=== PATIENT | male | born 1995 | race African-American/Black ===

== ENCOUNTER 2021-01-13 10:57 | Inpatient (IN) | payer MEDICAID, SELFPAY ==
--- NOTE | ~2021-01-13 | MR_ITS ---
EXAMINATION: MR BRAIN WITHOUT CONTRAST CLINICAL INFORMATION: Seizures. COMPARISON: CT scan of the head 01/13/2021. TECHNIQUE: Multiplanar imaging of the brain was performed without contrast FINDINGS: Dedicated coronal oblique imaging through the temporal lobes reveals symmetric size, signal intensity, and morphological appearance of the hippocampal formations. No evidence of mesial temporal sclerosis. No identifiable malformation of cortical development. There is no intracranial mass effect or midline shift. No abnormal extra-axial collection. Lateral and third ventricles are normal. No hydrocephalus. Midline structures including the cervicomedullary junction are normal. No acute bone marrow signal changes. There is no acute territorial infarct. No pathological magnetic susceptibility artifact. Intracranial vascular flow voids are maintained. There is no mastoid or middle ear effusion. Mild mucosal thickening within ethmoid air cells. Globes and orbits are symmetric. MR/MR head/brain wo con IMPRESSION: Normal brain MRI.
--- NOTE | ~2021-01-13 | CT_ITS ---
EXAMINATION: CT BRAIN AND CT CERVICAL SPINE WITHOUT CONTRAST. CLINICAL INFORMATION: Seizures COMPARISON: None TECHNIQUE: 5 mm thin axial and reformatted 2 mm thin sagittal coronal images of brain were obtained. Subsequently axial 3 mm thin and reformatted 2 minutes thin sagittal coronal images of cervical spine were obtained. DLP 1418. FINDINGS: Brain: There is no acute intra-axial, extra-axial bleed, masses or midline shift. There is no acute infarction evolution. No edema or mass effect. Both lateral ventricles are symmetrical in size and configuration without enlargement. No abnormality seen in the posterior fossa. Bone windows reveal no calvarial abnormality. The paranasal sinuses and mastoid air cells are well-aerated. Cervical spine: There is mild straightening of cervical lordosis. The vertebral heights, alignment and disc heights are normal. The craniovertebral junction and the C1-C2 alignment is normal. The facet joints are well aligned. No visible acute fracture, dislocation or subluxation seen. The prevertebral and paravertebral soft tissues are normal. Incidental finding of C6 and C7 bifid spinous process noted. CT/CT cervical spine wo con IMPRESSION: No acute intracranial process seen. No acute fracture, dislocation or subluxation in cervical spine.
--- NOTE | ~2021-01-13 | CT_ITS ---
EXAMINATION: CT BRAIN AND CT CERVICAL SPINE WITHOUT CONTRAST. CLINICAL INFORMATION: Seizures COMPARISON: None TECHNIQUE: 5 mm thin axial and reformatted 2 mm thin sagittal coronal images of brain were obtained. Subsequently axial 3 mm thin and reformatted 2 minutes thin sagittal coronal images of cervical spine were obtained. DLP 1418. FINDINGS: Brain: There is no acute intra-axial, extra-axial bleed, masses or midline shift. There is no acute infarction evolution. No edema or mass effect. Both lateral ventricles are symmetrical in size and configuration without enlargement. No abnormality seen in the posterior fossa. Bone windows reveal no calvarial abnormality. The paranasal sinuses and mastoid air cells are well-aerated. Cervical spine: There is mild straightening of cervical lordosis. The vertebral heights, alignment and disc heights are normal. The craniovertebral junction and the C1-C2 alignment is normal. The facet joints are well aligned. No visible acute fracture, dislocation or subluxation seen. The prevertebral and paravertebral soft tissues are normal. Incidental finding of C6 and C7 bifid spinous process noted. CT/CT head/brain wo con IMPRESSION: No acute intracranial process seen. No acute fracture, dislocation or subluxation in cervical spine.
--- NOTE | 2021-01-13 11:06 | ECG_ITS ---
Test Reason : SEIZURE Blood Pressure : / mmHG Vent. Rate : 069 BPM Atrial Rate : 069 BPM P-R Int : 164 ms QRS Dur : 098 ms QT Int : 390 ms P-R-T Axes : 059 040 004 degrees QTc Int : 417 ms Normal sinus rhythm ST elevation, consider early repolarization, pericarditis, or injury Abnormal ECG No previous ECGs available Referred By: Jagruti Conrad Electronically Signed By:OLIVIA GALLAGHER
[2021-01-13 11:07] VITALS: BP 167/93; PULSE 70
--- NOTE | 2021-01-13 11:07 | ED_ITS ---
HPI - Seizure General Chief Complaint: Neuro Symptoms/Deficit Stated Complaint: ? SEIZURE/POST ICTAL,NO HX OF SZ Time Seen by Provider: 01/13/21 11:06 Source: EMS Mode of arrival: EMS Limitations: altered mental status History of Present Illness HPI Narrative: Patient is brought to the emergency room by EMS. Patient is an otherwise healthy male, today had new onset seizures. The patient is family/friends report that patient smoked marijuana for the 1st time today, patient went to the bathroom, they heard a loud fall, noticed that the patient was having tonic clonic seizures. EMS was called, patient was postictal when they arrived. Just prior to arriving to the emergency room, EMS reports that the patient had a 2nd seizure, seems that the patient bit his tongue. 2 mg of IV Versed given by EMS. Patient unable to give any history Related Data Allergies Allergy/AdvReac Type Severity Reaction Status Date / Time Unable to Assess Allergy Verified 01/13/21 11:06 Review of Systems Review of Systems: Yes Unobtainable due to mental condition [facility] Social History Social History Advance Directives: No Physical Exam Vital Signs: Vital Signs: Last Vital Signs Temp 98 F 01/13/21 11:10 Resp 16 01/13/21 11:10 BP 126/56 L 01/13/21 11:10 Pulse Ox 96 01/13/21 11:10 Body Mass Index 24.7 Const: Other: Appearance: Unconscious, reacts to painful stimuli Eyes: Pupils equal, round and reactive to light. ENT: Pharynx normal. Laceration to the right side of the tongue Neck: Normal inspection. Neck supple. No lymph nodes noted. No crepitus CVS: Normal heart rate and rhythm. Pulses normal. Normal S1 and S2 Respiratory: No respiratory distress. Breath sounds normal. No Wheezing. No rales Abdomen: Soft , No rigidity. No distention. Skin: Skin warm and dry. Normal skin color. Normal skin turgor. Extremities: No lower extremity edema. No Lacerations. No Rash Neuro: Patient postictal Course Course Course Narrative: Patient was starting to become more awake and alert, soon a fter he had a 3rd seizure. Patient is being started on IV Keppra, given 2 mg of Ativan I discussed the patient with Dr. Greene, EEG has been ordered. Patient will be admitted. EKG showed diffuse ST segment elevation, likely in early repolarization. I discussed the EKG with Dr. Luna, early repolariztion, normal ecg MDM - Seizure Lab Data Result diagrams: 01/13/21 11:24 01/13/21 11:24 Labs: Lab Results 01/13/21 01/13/21 01/13/21 Range/Units 11:24 11:24 11:24 WBC 10.5 (4.8-10.8) X10*3/uL RBC 5.03 (4.60-5.80) X10*6/uL Hgb 15.8 (14.0-18.0) g/dl Hct 47.6 (42-52) % MCV 94.6 (80-98) fL MCH 31.4 (27.0-33.0) pg MCHC 33.2 (31.0-36.0) g/dl RDW 13.5 (11.0-16.0) % Plt Count 227 (160-400) X10*3/uL MPV 9.2 L (9.4-12.4) fL Immature Gran % (Auto) 1.0 H (0.0-0.4) % Neut % (Auto) 71.5 (45-73) % Lymph % (Auto) 20.9 (20-40) % [place] % (Auto) 5.1 (2-11) % Eos % (Auto) 1.2 (0-4) % Baso % (Auto) 0.3 (0-2) % Lymph # (Auto) 2.2 (1.2-4.9) X10*3/uL [place] # (Auto) 0.5 (0.1-1.2) X10*3/uL Eos # (Auto) 0.1 (0.0-0.4) X10*3/uL Baso # (Auto) 0.0 (0.0-0.2) X10*3/uL Abs Immat Gran (auto) 0.10 H (0.00-0.03) X10*3/uL Absolute Neuts (auto) 7.5 (2.0-8.3) X10*3/uL Absolute Nucleated RBC 0.000 (0.0-0.012) X10*3/uL Nucleated RBC % (auto) 0.0 (0.0-0.2) /100WBC Sodium 140 (135-145) mmol/L Potassium 4.0 (3.3-5.1) mmol/L Chloride 106 (96-108) mmol/L Carbon Dioxide 15 L (22-29) mmol/L Anion Gap 23 H (12-20) BUN 12 (9-16) mg/dL Creatinine 1.01 (0.5-1.4) mg/dL Estim Creat Clear Calc 132.4 Estimated GFR > 60 Random Glucose 140 H (60-115) mg/dL Calcium 9.3 (8.4-10.2) mg/dL Total Bilirubin 0.3 (0.0-1.0) mg/dL Direct Bilirubin < 0.2 (0.0-0.5) mg/dL AST 21 (5-37) U/L ALT 29 (0-40) U/L Alkaline Phosphatase 73 (39-117) U/L Total Protein 7.6 (6.5-8.0) g/dL Albumin 4.5 (3.5-5.0) g/dL Urine Color Urine Appearance Urine pH (5.0-8.0) Ur Specific [place] (1.005-1.025) Urine Protein (NEG-TRACE) MG/DL Urine Glucose (UA) (NEG) MG/DL Urine Ketones (NEG) MG/DL Urine Blood (NEG) Urine Nitrite (NEG) Ur Leukocyte Esterase (NEG) Urine RBC (0) /HPF Urine WBC (0-4) /HPF Ur Squamous Epith Cells /LPF Amorphous Sediment /LPF Urine Bacteria /LPF Urine Opiates Screen (Not Detect) Urine Fentanyl Screen (Not Detect) Ur Barbiturates Screen (Not Detect) Ur Phencyclidine Scrn (Not Detect) Ur Amphetamines Screen (Not Detect) U Benzodiazepines Scrn (Not Detect) Urine Cocaine Screen (Not Detect) U Marijuana (THC) Screen (Not Detect) Ethyl Alcohol < 10 mg/dL 01/13/21 01/13/21 Range/Units 12:53 12:53 WBC (4.8-10.8) X10*3/uL RBC (4.60-5.80) X10*6/uL Hgb (14.0-18.0) g/dl Hct (42-52) % MCV (80-98) fL MCH (27.0-33.0) pg MCHC (31.0-36.0) g/dl RDW (11.0-16.0) % Plt Count (160-400) X10*3/uL MPV (9.4-12.4) fL Immature Gran % (Auto) (0.0-0.4) % Neut % (Auto) (45-73) % Lymph % (Auto) (20-40) % [place] % (Auto) (2-11) % Eos % (Auto) (0-4) % Baso % (Auto) (0-2) % Lymph # (Auto) (1.2-4.9) X10*3/uL [place] # (Auto) (0.1-1.2) X10*3/uL Eos # (Auto) (0.0-0.4) X10*3/uL Baso # (Auto) (0.0-0.2) X10*3/uL Abs Immat Gran (auto) (0.00-0.03) X10*3/uL Absolute Neuts (auto) (2.0-8.3) X10*3/uL Absolute Nucleated RBC (0.0-0.012) X10*3/uL Nucleated RBC % (auto) (0.0-0.2) /100WBC Sodium (135-145) mmol/L Potassium (3.3-5.1) mmol/L Chloride (96-108) mmol/L Carbon Dioxide (22-29) mmol/L Anion Gap (12-20) BUN (9-16) mg/dL Creatinine (0.5-1.4) mg/dL Estim Creat Clear Calc Estimated GFR Random Glucose (60-115) mg/dL Calcium (8.4-10.2) mg/dL Total Bilirubin (0.0-1.0) mg/dL Direct Bilirubin (0.0-0.5) mg/dL AST (5-37) U/L ALT (0-40) U/L Alkaline Phosphatase (39-117) U/L Total Protein (6.5-8.0) g/dL Albumin (3.5-5.0) g/dL Urine Color YELLOW Urine Appearance CLEAR Urine pH 6.0 (5.0-8.0) Ur Specific [place] >= 1.030 H (1.005-1.025) Urine Protein 1+ H (NEG-TRACE) MG/DL Urine Glucose (UA) NEG (NEG) MG/DL Urine Ketones NEG (NEG) MG/DL Urine Blood TRACE (NEG) Urine Nitrite NEG (NEG) Ur Leukocyte Esterase NEG (NEG) Urine RBC 0 (0) /HPF Urine WBC 0-2 (0-4) /HPF Ur Squamous Epith Cells TRACE /LPF Amorphous Sediment TRACE /LPF Urine Bacteria NONE /LPF Urine Opiates Screen Not Detected (Not Detect) Urine Fentanyl Screen Not Detected (Not Detect) Ur Barbiturates Screen Not Detected (Not Detect) Ur Phencyclidine Scrn Not Detected (Not Detect) Ur Amphetamines Screen Not Detected (Not Detect) U Benzodiazepines Scrn POSITIVE H (Not Detect) Urine Cocaine Screen Not Detected (Not Detect) U Marijuana (THC) Screen POSITIVE H (Not Detect) Ethyl Alcohol mg/dL Imaging Data Head and cervical spine CT: Radiologist's impression: Brain: There is no acute intra-axial, extra- axial bleed, masses or midline shift. There is no acute infarction evolution. No edema or mass effect. Both lateral ventricles are symmetrical in size and configuration without enlargement. No abnormality seen in the posterior fossa. Bone windows reveal no calvarial abnormality. The paranasal sinuses and mastoid air cells are well-aerated. Cervical spine: There is mild straightening of cervical lordosis. The vertebral heights, alignment and disc heights are normal. The craniovertebral junction and the C1-C2 alignment is normal. The facet joints are well aligned. No visible acute fracture, dislocation or subluxation seen. The prevertebral and paravertebral soft tissues are normal. Incidental finding of C6 and C7 bifid spinous process noted. CT/CT head/brain wo con IMPRESSION: No acute intracranial process seen. ? No acute fracture, dislocation or subluxation in cervical spine.? ECG Data Attestation: I personally reviewed and interpreted this ECG as follows: (Normal sinus rhythm, heart rate 69, diffuse ST segment elevations V1 through V6, inverted T-waves, early repolarization, QTC 417) Critical Care Time Critical Care Time Critical Care Time: Yes Total Critical Care Time: 45 Attestation: 45 minutes were spent in direct patient care, stabilization and consults Discharge Plan Discharge Clinical Impression: New onset seizure Patient Disposition: Admitted As Inpatient
[2021-01-13 11:10] VITALS: BP 126/56; RESP 16; TEMP 36.6; O2SAT 96; BMI 24.7
[2021-01-13 11:33] LABS: MANUAL DIFF FLAG NO
[2021-01-13 11:34] LABS: Basophils Percent Auto 0.3 % (0-2); Eosinophils Absolute Auto 0.1 X10*3/uL (0.0-0.4); Eosinophils Percent Auto 1.2 % (0-4); Hematocrit 47.6 % (42-52); Hemoglobin 15.8 g/dl (14.0-18.0); Lymphocytes Absolute Auto 2.2 X10*3/uL (1.2-4.9); Lymphocytes Percent Auto 20.9 % (20-40); Mean Corpuscular HGB Conc 33.2 g/dl (31.0-36.0); Mean Corpuscular Hemoglobin 31.4 pg (27.0-33.0); Mean Corpuscular Volume 94.6 fL (80-98); Mean Platelet Volume 9.2 fL (9.4-12.4); Monocytes Absolute Auto 0.5 X10*3/uL (0.1-1.2); Monocytes Percent Auto 5.1 % (2-11); Neutrophils Absolute Auto 7.5 X10*3/uL (2.0-8.3); Neutrophils Percent Auto 71.5 % (45-73); Platelet Count 227 X10*3/uL (160-400); Red Blood Count 5.03 X10*6/uL (4.60-5.80); Red Cell Distribution Width 13.5 % (11.0-16.0); White Blood Count 10.5 X10*3/uL (4.8-10.8)
--- NOTE | 2021-01-13 11:45 | PC.NURSE ---
Pt brought to ed via ems. Per ems the pt's friends reported that he smoked marijuana for the first time today, went to the bathroom, they heard a loud noise in the bathroom and noticed that the pt was having a seizure. Per ems pt was postictal when they arrived at the pt's home. EMS also reported that the pt had a second seizure prior to arriving to the emergency room. Pt was given 2 mg of IV Versed by EMS. Pt unconscious on arrival to ed, arousable with painful stimuli. VSS. Seizure precautions in place. Mom at bedside. will continue to monitor.
[2021-01-13 11:56] LABS: Ethanol < 10 mg/dL
[2021-01-13 12:00] VITALS: BP 130/91; PULSE 80; RESP 14; O2SAT 98
[2021-01-13 12:00] LABS: Alanine Aminotransferase 29 U/L (0-40); Albumin Level 4.5 g/dL (3.5-5.0); Alkaline Phosphatase 73 U/L (39-117); Anion Gap 23 (12-20); Aspartate Amino Transferase 21 U/L (5-37); Bilirubin Direct < 0.2 mg/dL (0.0-0.5); Bilirubin Total 0.3 mg/dL (0.0-1.0); Blood Urea Nitrogen 12 mg/dL (9-16); Calcium 9.3 mg/dL (8.4-10.2); Carbon Dioxide 15 mmol/L (22-29); Chloride 106 mmol/L (96-108); Creatinine Clr Calc Pharmacy 132.4; Estimated Glomerular Filt Rate > 60; Glucose Random 140 mg/dL (60-115); Sodium 140 mmol/L (135-145); Total Protein 7.6 g/dL (6.5-8.0)
[2021-01-13] MEDS: LORazepam 2 MG/ML VIAL IVPUSH (12:51)
--- NOTE | 2021-01-13 12:53 | EEG_ITS ---
The waking background activity consists of low voltage fast frequencies seen diffusely, intermixed with low voltage posterior 10 hertz alpha. Drowsiness is characterized with diffuse theta slowing. During sleep, symmetrical sleep spindles develop over both hemispheres and some bifrontal delta develops during deeper stages of sleep. Photic stimulation is without activation. Hyperventilation was omitted. No focal, lateralizing, or paroxysmal discharges seen. IMPRESSION: This awake and sleep EEG is within normal. MD NICOLE Stephens/MIRNA / [id number]
[2021-01-13] MEDS: levETIRAcetam in NaCl (iso-os) 1,500 MG/100 ML PIGGYBACK 400 MG IV (12:56)
--- NOTE | 2021-01-13 13:00 | PC.NURSE ---
Pt's mother alerted staff that he was actively having a seizure. When staff entered the pt's room he was post-ictal, pt responded to painful stimuli. Pt became more awake and alert shortly after his 3rd seizure. Pt given IV Keppra and 2 mg of Ativan as documented, vss.
[2021-01-13 13:05] LABS: Appearance Urine CLEAR; Color Urine YELLOW; Glucose Urine UA NEG (NEG); Leukocyte Esterase Urine NEG (NEG); Nitrite Urine NEG (NEG); Specific Gravity - Urine >= 1.030 (1.005-1.025); UACC Culture Trigger NO; Urine Blood TRACE (NEG); Urine Ketones NEG (NEG); Urine Protein 1+ MG/DL (NEG-TRACE)
[2021-01-13 13:13] LABS: RBC Urine 0 /HPF (0); WBC Urine 0-2 /HPF (0-4)
[2021-01-13 13:14] LABS: Amorphous Sediment Urine TRACE /LPF; Squamous Epithelial Cell Urine TRACE /LPF
[2021-01-13 13:15] LABS: Amphetamine Screen Urine Not Detected (Not Detect); Barbiturates, Urine Not Detected (Not Detect); Benzodiazepines Screen Urine POSITIVE (Not Detect); Cannabinoid Screen Urine POSITIVE (Not Detect); Cocaine Screen Urine Not Detected (Not Detect); Fentanyl, urine Not Detected (Not Detect); Opiate Screen Urine Not Detected (Not Detect); Phencyclidine Screen Urine Not Detected (Not Detect)
[2021-01-13 13:40] VITALS: BP 119/75; PULSE 81; RESP 15; TEMP 37.1; O2SAT 99
--- NOTE | 2021-01-13 13:56 | P.HPHOSP_ITS ---
History of Present Illness Date of Service: 01/13/21 Attending physician on admission: Clarisse Rushing Chief Complaint: seizure episodes. Patient is postictal right now unable to give appropriate history. History taken with the help of ED physician, patient's neighbor/significant other. 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 Clonic tonic. As per the ED physician patient had another seizure in the EMS/ambulance: Received Versed, subsequently was brought to the ED and there he had a 3rd se izure and received lorazepam and Keppra. Currently patient is awake but still seems somewhat postictal. Could able to answer some questions: Denies any chest pain or shortness of breath or abdominal pain or fever or chills or cough or phlegm. Denies any weakness or numbness. As per the neighbor he was also noticed to have past urine when he had 1st episode of seizure. Denies any tongue bite but has headaches. He denies any previous seizure episode in his life. Past medical history: None except above. Social history: Lives with his significant other?, drinks Tequila 3-4 shots 3 to 4 times a week, last short as per the patient was on Tuesday. Denies any tobacco smoking but says uses marijuana last use was today Denies any other recreational drug use. Past surgical history as per the patient none. Family history: Patient denies any family history of any seizure issue or any brain disease . Review of Systems Review of Systems: As above Yes all other systems are reviewed and are negative PMFSH Pertinent family history: As above. Social History Advance Directives: No Meds Allergies Allergy/AdvReac Type Severity Reaction Status Date / Time Unable to Assess Allergy Verified 01/13/21 11:06 Active Medications: Current Medications Lactated Ringer's (Lr) 1,000 mls @ 80 mls/hr IVCONT .[id number] [facility] Pharmacy Consult (Consult Rx Perform Med Rec) 1 each MISCELLANE ONCE PRN PRN Reason: Consult order Home Medications Medication Instructions Recorded Confirmed Last Taken Type No Known Home Meds 01/13/21 01/13/21 Unknown History Physical Exam Vital Signs and Narrative: Vital Signs: Last Vital Signs Temp 98.8 F 01/13/21 13:40 Pulse 81 01/13/21 13:40 Resp 15 01/13/21 13:40 BP 119/75 01/13/21 13:40 Pulse Ox 99 01/13/21 13:40 Body Mass Index 24.7 Physical exam: Appearance: somewhat sleepy and confused,? not in distress.? Eyes: Pupils equal, round and reactive to light.? Sclera nonicteric.? ENT: Pharynx normal.? Moist mucous membranes. cvs: rrr, [id number] , no murmur res: clear to auscultation ,no rhonchii or wheezing abd: no rebound or guarding ,nt, bs present. ext pulses present , no cyanosis. neuro: axo2 , somewhat confused , nonfocal. eomi, perrla Results Labs CBC and Chem 7: 01/13/21 11:24 01/13/21 11:24 Labs: Laboratory Results - last 24 hr 01/13/21 01/13/21 01/13/21 11:24 11:24 11:24 MCV 94.6 MCH 31.4 MCHC 33.2 RDW 13.5 Plt Count 227 MPV 9.2 L Immature Gran % (Auto) 1.0 H Neut % (Auto) 71.5 Lymph % (Auto) 20.9 [place] % (Auto) 5.1 Eos % (Auto) 1.2 Baso % (Auto) 0.3 Lymph # (Auto) 2.2 [place] # (Auto) 0.5 Eos # (Auto) 0.1 Baso # (Auto) 0.0 Abs Immat Gran (auto) 0.10 H Absolute Neuts (auto) 7.5 Absolute Nucleated RBC 0.000 Nucleated RBC % (auto) 0.0 Anion Gap 23 H Estim Creat Clear Calc 132.4 Estimated GFR > 60 Random Glucose 140 H Calcium 9.3 Total Bilirubin 0.3 Direct Bilirubin < 0.2 AST 21 ALT 29 Alkaline Phosphatase 73 Total Protein 7.6 Albumin 4.5 Urine Color Urine Appearance Urine pH Ur Specific [place] Urine Protein Urine Glucose (UA) Urine Ketones Urine Blood Urine Nitrite Ur Leukocyte Esterase Urine RBC Urine WBC Ur Squamous Epith Cells Amorphous Sediment Urine Bacteria Urine Opiates Screen Urine Fentanyl Screen Ur Barbiturates Screen Ur Phencyclidine Scrn Ur Amphetamines Screen U Benzodiazepines Scrn Urine Cocaine Screen U Marijuana (THC) Screen Ethyl Alcohol < 10 01/13/21 01/13/21 12:53 12:53 MCV MCH MCHC RDW Plt Count MPV Immature Gran % (Auto) Neut % (Auto) Lymph % (Auto) [place] % (Auto) Eos % (Auto) Baso % (Auto) Lymph # (Auto) [place] # (Auto) Eos # (Auto) Baso # (Auto) Abs Immat Gran (auto) Absolute Neuts (auto) Absolute Nucleated RBC Nucleated RBC % (auto) Anion Gap Estim Creat Clear Calc Estimated GFR Random Glucose Calcium Total Bilirubin Direct Bilirubin AST ALT Alkaline Phosphatase Total Protein Albumin Urine Color YELLOW Urine Appearance CLEAR Urine pH 6.0 Ur Specific [place] >= 1.030 H Urine Protein 1+ H Urine Glucose (UA) NEG Urine Ketones NEG Urine Blood TRACE Urine Nitrite NEG Ur Leukocyte Esterase NEG Urine RBC 0 Urine WBC 0-2 Ur Squamous Epith Cells TRACE Amorphous Sediment TRACE Urine Bacteria NONE Urine Opiates Screen Not Detected Urine Fentanyl Screen Not Detected Ur Barbiturates Screen Not Detected Ur Phencyclidine Scrn Not Detected Ur Amphetamines Screen Not Detected U Benzodiazepines Scrn POSITIVE H Urine Cocaine Screen Not Detected U Marijuana (THC) Screen POSITIVE H Ethyl Alcohol Imaging Radiologist's Impressions: Impressions Cervical Spine CT 01/13/21 11:06 IMPRESSION: No acute intracranial process seen. No acute fracture, dislocation or subluxation in cervical spine. Head CT 01/13/21 11:06 IMPRESSION: No acute intracranial process seen. No acute fracture, dislocation or subluxation in cervical spine. Assessment and Plan (1) New onset seizure: Status: Acute (2) Toxic metabolic encephalopathy: Status: Acute 1. New onset seizure: Lab imaging and EKG personally reviewed and interpreted: CBC and chemistry seems fine CT head and C-spine:No acute intracranial process seen,No acute fracture, dislocation or subluxation in cervical spine.? EKG seems NSR had some repolarization changes otherwise unremarkable. Troponin neg Patient already received Keppra/nodes in the ED neurochecks utox -positive for maihjuana emg , neuro eval added Will start patient on Keppra, ativan prn for seizures keep npo until more awake , iv hydration 2. alcohol use: caitlin hoangle so far no signs of withdrawal , he never got admitted for alcohol withdrawal denies any seizure in the past. thiamine /folic acid 3. toxic metabolic encephalopathy probable sec to seizure /benzos ( received verced /ativan 3.dvt prophylax : s/c lovenox Quality Stroke Does the patient have a stroke diagnosis?: No VTE Prior VTE?: No VTE Risk Level:: Medical - moderate - high VTE Device Contraindication: N/A - Device Ordered VTE Drug Contraindication: N/A - Med Ordered
[2021-01-13 14:00] LABS: Troponin-I High Sensitivity < 3.5 ng/L (<3.5-35.0)
--- NOTE | 2021-01-13 14:07 | PHA.MEDREC ---
Pharmacy Consult ? Medication Reconciliation Pharmacy has completed the medication reconciliation. Patient reports that he takes no medications at home. Leigha Monahan, GregoriaD
[2021-01-13] MEDS: Thiamine HCL 100 MG in 0.9 % Sodium Chloride 100 ML 202 MG IV (14:37)
[2021-01-13] MEDS: Folic Acid 1 MG in 0.9 % Sodium Chloride 50 ML 100.4 MG IV (14:48)
[2021-01-13] MEDS: Enoxaparin Sodium 40 MG/0.4 ML SYRINGE SUBCUT (14:49)
--- NOTE | 2021-01-13 15:00 | PC.NURSE ---
pt sleeping, easily awake and responds when spoken to. Pt states he does not remember anything that happened. he denies any drug use, he admits to smoking marijuana sometimes. No other seizure activities noted or reported, meds given as documented, fluids hung, vss, family member at bedside. Pt will be admitted.
[2021-01-13 15:23] LABS: IDNOW Serial# 9DD0AD1C
[2021-01-13 15:24] LABS: COVID-19 Test Negative (Negative)
--- NOTE | 2021-01-13 15:33 | PM.NEUROCN ---
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 grid operator were called and he was being transported to the hospital where he proceeded to have a second generalized seizure and while in the emergency room he had a third seizure. After the second he was given Versed, and after the third he was given 1500 mg off Keppra and lorazepam. He is had no further seizures but remains somewhat confused and postictal and unable to give reliable information. There is no previous history of seizures. No family history of seizures or history of significant head trauma. His alcohol levels are pending. He was positive on his toxic screen for benzos and marijuana Review of Systems Review of Systems: As above Yes all other systems are reviewed and are negative and Unobtainable due to mental condition Neurologic: Comments: He is arousable but somewhat drowsy and postictal slightly confused but follows simple commands. His cranial nerves II through XII are normal. Muscle tone and strength are normal in all 4 extremities, deep tendon reflexes symmetrical implant response are flexor. Neck is supple PMFSH Family History Pertinent family history: As above. Social History Social History Advance Directives: No Meds Allergies Allergy/AdvReac Type Severity Reaction Status Date / Time Unable to Assess Allergy Verified 01/13/21 11:06 Active Medications: Current Medications Enoxaparin Sodium (Enoxaparin Sodium 40 Mg/0.4 Ml Syringe) 40 mg SUBCUT Q24H [facility] Last Admin: 01/13/21 14:49 Dose: 40 mg Documented by: Lactated Ringer's (Lr) 1,000 mls @ 80 mls/hr IVCONT .[id number] YAHIR Thiamine HCl 100 mg/ Sodium (Chloride) 101 mls @ 202 mls/hr IV DAILY YAHIR Last Admin: 01/13/21 14:37 Dose: 202 mls/hr Documented by: Folic Acid 1 mg/ Sodium (Chloride) 50.2 mls @ 100.4 mls/hr IV Q24H [facility] Last Admin: 01/13/21 14:48 Dose: 100.4 mls/hr Documented by: Levetiracetam (Keppra) 500 mg in 100 mls @ 400 mls/hr IV Q12H [facility] Pharmacy Consult (Consult Rx Perform Med Rec) 1 each MISCELLANE ONCE PRN PRN Reason: Consult order Home Medications Medication Instructions Recorded Confirmed Last Taken Type No Known Home Meds 01/13/21 01/13/21 Unknown History Physical Exam Vital Signs: Vital Signs: Last Vital Signs Temp 98.8 F 01/13/21 13:40 Pulse 81 01/13/21 13:40 Resp 15 01/13/21 13:40 BP 119/75 01/13/21 13:40 Pulse Ox 99 01/13/21 13:40 Body Mass Index 24.7 Const: Other: Appearance: Unconscious, reacts to painful stimuli Eyes: Pupils equal, round and reactive to light. ENT: Pharynx normal. Laceration to the right side of the tongue Neck: Normal inspection. Neck supple. No lymph nodes noted. No crepitus CVS: Normal heart rate and rhythm. Pulses normal. Normal S1 and S2 Respiratory: No respiratory distress. Breath sounds normal. No Wheezing. No rales Abdomen: Soft , No rigidity. No distention. Skin: Skin warm and dry. Normal skin color. Normal skin turgor. Extremities: No lower extremity edema. No Lacerations. No Rash Neuro: Patient postictal Results Labs CBC & Chem 7: 01/13/21 11:24 01/13/21 11:24 Labs: Short CBC 01/13/21 Range/Units 11:24 WBC 10.5 (4.8-10.8) X10*3/uL Hgb 15.8 (14.0-18.0) g/dl Hct 47.6 (42-52) % Plt Count 227 (160-400) X10*3/uL BMP 01/13/21 11:24 Sodium 140 Potassium 4.0 Chloride 106 Carbon Dioxide 15 L BUN 12 Creatinine 1.01 Calcium 9.3 Liver Function 01/13/21 Range/Units 11:24 Total Bilirubin 0.3 (0.0-1.0) mg/dL Direct Bilirubin < 0.2 (0.0-0.5) mg/dL AST 21 (5-37) U/L ALT 29 (0-40) U/L Alkaline Phosphatase 73 (39-117) U/L Albumin 4.5 (3.5-5.0) g/dL Urine 01/13/21 Range/Units 12:53 Urine Color YELLOW Urine Appearance CLEAR Urine pH 6.0 (5.0-8.0) Ur Specific [place] >= 1.030 H (1.005-1.025) Urine Protein 1+ H (NEG-TRACE) MG/DL Urine Glucose (UA) NEG (NEG) MG/DL Assessment and Plan (1) New onset seizure: Status: Acute New-onset of generalized seizure of unclear etiology. Possible withdrawal from alcohol or other toxic metabolic causes. Doubt structural etiology. CAT scan of the head is normal. Would recommend an EEG. At some point an MRI of the brain should be done to loook at his medial temporal lobes. Continue Keppra 500 mg by mouth twice a day. (2) Toxic metabolic encephalopathy: Status: Acute 1. New onset seizure: Lab imaging and EKG personally reviewed and interpreted: CBC and chemistry seems fine CT head and C-spine:No acute intracranial process seen,No acute fracture, dislocation or subluxation in cervical spine.? EKG seems NSR had some repolarization changes otherwise unremarkable. Troponin neg Patient already received Keppra/nodes in the ED neurochecks utox -positive for maihjuana emg , neuro eval added Will start patient on Keppra, ativan prn for seizures keep npo until more awake , iv hydration 2. alcohol use: caitlin hoangle so far no signs of withdrawal , he never got admitted for alcohol withdrawal denies any seizure in the past. thiamine /folic acid 3. toxic metabolic encephalopathy probable sec to seizure /benzos ( received verced /ativan 3.dvt prophylax : s/c lovenox Procedures Date of Service Date of Service: 01/13/21
[2021-01-13] MEDS: Lactated Ringers 1,000 ML 80 ML IVCONT (15:36)
[2021-01-13 16:32] VITALS: BP 123/61; PULSE 69; RESP 20; TEMP 36.9; O2SAT 99
--- NOTE | 2021-01-13 18:09 | PC.NURSE ---
pt sleeping, fluids infusing without difficulty, pt tolerating well. no other seizure activities noted/reported, seizure precautions remain in place. vss. Pt's mom at bedside. pt awaiting bed assignment
[2021-01-13 20:08] VITALS: BP 134/80; PULSE 66; RESP 16; TEMP 37.1; O2SAT 98
--- NOTE | 2021-01-13 20:12 | PC.NURSE ---
Addendum entered by Jon Rodriguez 01/13/21 20:15: PT is CAOx4, resting quietly in bed but requesting to go home. PT admits to history of alcohol consumption, but denies any symptoms of withdrawal in the past. No tremors, seizures, nausea, vomiting. Plan is to admit PT for further evaluation. Original Note: PT is CAOx4, resting quietly in bed but requesting to go home. PT admits to history of alcohol consumption, but denies any symptoms of withdrawal in the past. No tremors, seizures, nausea, vomiting. PT is
[2021-01-13] MEDS: LORazepam 1 MG TABLET 2 MG PO (20:59)
--- NOTE | 2021-01-13 21:03 | PC.NURSE ---
PT medicated per JUN. Given two Ativan tablets with a small sip of water.
[2021-01-14] MEDS: Lactated Ringers 1,000 ML 80 ML IVCONT (05:40)
[2021-01-14 08:00] VITALS: BP 137/72; PULSE 67; RESP 18; O2SAT 99
[2021-01-14] MEDS: levETIRAcetam in NaCl (iso-os) 500 MG/100 ML PIGGYBACK 400 MG IV (08:08)
[2021-01-14] MEDS: Thiamine HCL 100 MG in 0.9 % Sodium Chloride 100 ML 202 MG IV (08:53)
[2021-01-14 11:39] VITALS: BP 110/60; PULSE 61; RESP 15; TEMP 36.9; O2SAT 97
[2021-01-14] MEDS: Folic Acid 1 MG TABLET PO (11:42)
--- NOTE | 2021-01-14 12:10 | PC.NURSE ---
IN MRI @ THIS TIME
--- NOTE | 2021-01-14 12:20 | MHC.CM.PN ---
Attempted to meet with patient in regards to discharge planning. Patient currently in MRI. No family present. Will attempt to meet with patient. Continue to monitor for d/c needs.
--- NOTE | 2021-01-14 12:36 | PC.NURSE ---
RETURNS FROM MRI @ THIS TIME
--- NOTE | 2021-01-14 14:26 | P.DS_ITS ---
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 Today morning went to the bathroom after using marijuana and fell down-subsequently neighbors/significant other noticed that he is having seizure?? Clonic tonic. As per the ED physician patient had another seizure in the EMS/ambulance:? Received Versed, subsequently was brought to the ED and there he had a 3rd seizure and received lorazepam and Keppra. Currently patient is awake but still seems somewhat postictal. Could able to answer some questions:? Denies any chest pain or shortness of breath or abdominal pain or fever or chills or cough or phlegm. Denies any weakness or numbness. As per the neighbor he was also noticed to have past urine when he had 1st episode of seizure. Denies any tongue bite but has headaches. He denies any previous seizure episode in his life. Past medical history:? None except above. Social history:? Lives with his significant other?, drinks Tequila 3-4 shots 3 to 4 times a week, last short as per the patient was on Tuesday. Denies any tobacco smoking but says uses marijuana last use was today Hospital course: Patient came with seizure episodes: Subsequently received Ativan and Keppra in the emergency room: Seems to be improved. CT head is fine as well as MRI is fine. Eeeg normal. advised to avoid driving until follow up outpatiently with neuro. Follow-up with neuro and PCP outpatient. Above management discussed with the patient in detail length he understand and in agreement with the above plan, time spent 50 minutes and 50% time spent on counseling. Significant findings: As above. Procedures performed: None. Treatment and response: As above. Complications: None. Time Spent with Patient Time attestation: Total time spent providing and/or coordinating discharge services: Discharge coordination time: Greater than 30 minutes Quality: Stroke Does the patient have a stroke diagnosis?: No Physical Exam Vital Signs: Vital Signs: Last Vital Signs Temp 98.5 F 01/14/21 11:39 Pulse 61 01/14/21 11:39 Resp 15 01/14/21 11:39 BP 110/60 01/14/21 11:39 Pulse Ox 97 01/14/21 11:39 Body Mass Index 24.7 Appearance: Aox3? Eyes: Pupils equal, round and reactive to light.? Sclera nonicteric.? ENT: Pharynx normal.? Moist mucous membranes. cvs: rrr, [id number] , no murmur res: clear to auscultation ,no rhonchii or wheezing abd: no rebound or guarding ,nt, bs present. ext pulses present , no cyanosis ,Gait well balanced well coordinated. neuro: axo3 , nonfocal. DS: Data Data Completed and Pending Labs on day of discharge: Laboratory Results - last 24 hr 01/13/21 14:59 COVID-19 (FRANCISCO) Negative CBC and Chem 7: 01/13/21 11:24? 01/13/21 11:24? Labs:Laboratory Results - last 24 hr ?01/13/2110/08/2109?[id number]?94.6??MCH?31.4??MCHC?33.2??RDW?13.5 ??Plt Count?227??MPV?9.2 L??Immature Gran % (Auto)?1.0 H??Neut % (Auto)?71.5?? Lymph % (Auto)?20.9??[place] % (Auto)?5.1??Eos % (Auto)?1.2??Baso % (Auto)?0.3??Lym ph # (Auto)?2.2??[place] # (Auto)?0.5??Eos # (Auto)?0.1??Baso # (Auto)?0.0??Abs Immat Gran (auto)?0.10 H??Absolute Neuts (auto)?7.5??Absolute Nucleated RBC?0.000??Nucleated RBC % (auto)?0.0??Anion Gap??23 H?Estim Creat Clear Calc? ?132.4?Estimated GFR??> 60?Random Glucose??140 H?Calcium??9.3?Total Bilirubin? ?0.3?Direct Bilirubin??< 0.2?AST??21?ALT??29?Alkaline Phosphatase??73?Total Protein??7.6?Albumin??4.5?Urine Color???Urine Appearance???Urine pH???Ur Specific [place]???Urine Protein???Urine Glucose (UA)???Urine Ketones???Urine Blood???Urine Nitrite???Ur Leukocyte Esterase???Urine RBC???Urine WBC???Ur Squamous Epith Cells???Amorphous Sediment???Urine Bacteria???Urine Opiates Screen???Urine Fentanyl Screen???Ur Barbiturates Screen???Ur Phencyclidine Scrn ???Ur Amphetamines Screen???U Benzodiazepines Scrn???Urine Cocaine Screen???U Marijuana (THC) Screen???Ethyl Alcohol???< 10 ?01/13/2110/05/21?12:5312:53MCV??MCH??MCHC??RDW??Plt Count??MPV??Immature Gran % (Auto)??Neut % (Auto)??Lymph % (Auto)??[place] % (Auto)??Eos % (Auto)??Baso % (Auto)??Lymph # (Auto)??[place] # (Auto)??Eos # (Auto)??[place] # (Auto)??Abs Immat Gran (auto)??Absolute Neuts (auto)??Absolute Nucleated RBC??Nucleated RBC % (aut o)??Anion Gap??Estim Creat Clear Calc??Estimated GFR??Random Glucose??Calcium?? Total Bilirubin??Direct Bilirubin??AST??ALT??Alkaline Phosphatase??Total Protein ??Albumin??Urine Color?YELLOW?Urine Appearance?CLEAR?Urine pH?6.0?Ur Specific [place]?>= 1.030 H?Urine Protein?1+ H?Urine Glucose (UA)?NEG?Urine Ketones?NEG? Urine Blood?TRACE?Urine Nitrite?NEG?Ur Leukocyte Esterase?NEG?Urine RBC?0?Urine WBC?0-2?Ur Squamous Epith Cells?TRACE?Amorphous Sediment?TRACE?Urine Bacteria?NONE?Urine Opiates Screen??Not DetectedUrine Fentanyl Screen??Not DetectedUr Barbiturates Screen??Not DetectedUr Phencyclidine Scrn??Not DetectedUr Amphetamines Screen??Not DetectedU Benzodiazepines Scrn??POSITIVE HUrine Cocaine Screen??Not DetectedU Marijuana (THC) Screen??POSITIVE HEthyl Alcohol?? Imaging Radiologist's Impressions:Impressions Cervical Spine CT? 01/13/21 11:06 IMPRESSION: No acute intracranial process seen. ? No acute fracture, dislocation or subluxation in cervical spine.? Head CT? 01/13/21 11:06 IMPRESSION: No acute intracranial process seen. ? No acute fracture, dislocation or subluxation in cervical spine.?COVID-19 Into The [facility] Com See Note Additional Comments Additional comments: mri: IMPRESSION: Normal brain MRI. Discharge Plan Discharge Patient Disposition: Home, Self-Care Discharge Diagnosis: seizure episodes Referrals: Ely Roca MD [Physician] - 1 Week (follow up with Dr roca in 2 weeks) Physician,None [Primary Care Provider] - 1 Week Discharge Medications: New folic acid 1 mg Tablet 1 mg PO DAILY Qty: 30 RF: 0 thiamine mononitrate (vit B1) 100 mg Tablet 100 mg PO DAILY Qty: 30 RF: 0 levetiracetam [Keppra] 500 mg tablet 500 mg PO BID Qty: 60 RF: 0 Discharge Orders: Discharge Order (Routine); Ordered 01/14/21 Ordered By: Clarisse Rushing Diet: advance to usual diet Activity on Discharge: As tolerated Stand Alone Forms: Patient Portal Discharge page, Work/School Release Care Plan Goals: Patient came with seizure episodes: Subsequently received Ativan and Keppra in the emergency room: Seems to be improved. CT head is fine as well as MRI is pending. Outpatient EEG recommended. Follow-up with neuro and PCP outpatient. Health Concerns: as above. Plan of Treatment: As above. Assessment: As above.
[2021-01-14 16:00] VITALS: BP 127/74; PULSE 74; RESP 16; TEMP 36.6; O2SAT 98
== END 2021-01-14 16:09 | disposition home or self-care (01) | DRG 53 ==
LOC: HO.ED 12:56 → HO.EDOVER 13:59 → HO.IMC 01-14 19:57
PROVIDERS: Admitting Provider Internal Medicine; Emergency Provider Emergency Medicine; Visit Provider Internal Medicine
DX: R56.9 Unspecified convulsions (principal); G92.8 Other toxic encephalopathy; Z20.822 Contact with and (suspected) exposure to COVID-19; T42.4X5A Adverse effect of benzodiazepines, initial encounter; Y92.9 Unspecified place or not applicable; Z72.89 Other problems related to lifestyle; Z79.899 Other long term (current) drug therapy
CPT/HCPCS: 36415; 70450; 70551; 72125; 80048; 80076; 80307; 81001; 81003; 82077; 84484; 85025; 87635; 93005; 95816; 99284; J1650; J1953; J2060; J3411

== ENCOUNTER 2023-12-10 13:20 | Inpatient (IN) | payer SELFPAY ==
[2023-12-10 13:27] VITALS: BP 158/104; PULSE 102; PULSE 94; RESP 18; TEMP 36.8; O2SAT 97; BMI 23.1
[2023-12-10] MEDS: 0.9 % Sodium Chloride 1,000 ML 999 ML IVCONT (13:30)
[2023-12-10] MEDS: LORazepam 2 MG/ML VIAL 1 MG IVPUSH ×2 (13:31→13:49)
--- NOTE | 2023-12-10 13:32 | ED.SEIZURE ---
HPI - Seizure General Chief Complaint: Seizure Stated Complaint: SEIZURES Time Seen by Provider: 12/10/23 13:28 Source: EMS Mode of arrival: EMS Limitations: no limitations History of Present Illness HPI Narrative: This is a 27 years old with history of seizure on Keppra presented to the emergency room with reported multiple seizure the alert at arrival he is not postictal he states that he takes Keppra once a day. Denies any fever chills complaint: seizure Onset (ago): hour(s) (2) Witnessed: Yes - by Other (roommate) Trauma: No Seizure History: Yes Place: Home Possible Precipitating Event: none Associated symptoms: denies other symptoms Related Data Previous Rx's ?Medication ?Instructions ?Recorded folic acid 1 mg tablet 1 mg PO DAILY #30 tabs 01/14/21 levetiracetam 500 mg tablet 500 mg PO BID #60 tabs 01/14/21 (Keppra) thiamine mononitrate (vit B1) 100 100 mg PO DAILY #30 tabs 01/14/21 mg tablet Allergies Allergy/AdvReac Type Severity Reaction Status Date / Time No Known Allergies Allergy Verified 12/10/23 13:29 Review of Systems Constitutional: Constitutional: Reports no additional constitutional complaints Cardiovascular: Cardiovascular: Reports no additional cardiovascular complaints Respiratory: Respiratory: Reports no additional respiratory complaints Gastrointestinal: Gastrointestinal: Reports no additional gastrointestinal complaints [facility] Past Medical History [facility] Narrative: Seizure disorder Social History Social History Alcohol intake: current Alcohol intake frequency: 3 or more drinks per day Alcohol type: beer, wine and hard liquor Patient Tobacco Use Status: Current someday Tobacco user Substance Use Type: Marijuana Advance Directives: No Advance Directives Information Provided: Yes Physical Exam Vital Signs: Vital Signs: Last Vital Signs Temp 98.2 F 12/10/23 13:27 Pulse 106 H 12/10/23 14:06 Resp 27 H 12/10/23 14:06 BP 152/94 H 12/10/23 14:06 Pulse Ox 94 12/10/23 14:06 O2 Del Method Room Air 12/10/23 14:06 BMI result Body Mass Index 23.1 He is awake and alert, he is not postictal at this time his vital signs are stable Const: General: cooperative, comfortable and no acute distress Nutritional Appearance: average body habitus Orientation/consciousness: patient oriented x3 Limitations: no limitations HEENT: Head: Yes normal to inspection Face and sinus: Yes normal facial exam Mouth: Normal oral and palatal mucosa present Neck: Neck: Yes normal visual inspection and Yes full ROM Chest: Chest palpation & inspection: normal inspection of the chest Resp: Effort & Inspection: normal respiratory effort Auscultation: clear to auscultation bilaterally Cardio: Jugular venous distension: no JVD Rate: regular rate Rhythm: regular rhythm GI: Inspection: Yes normal to inspection Palpation (GI): Soft to palpation, not firm and nontender Percussion: Yes normal to percussion Auscultation: normal bowel sounds Skin: General skin exam: no rashes or lesions noted and elasticity normal Lesions: no lesions Rashes: no rashes Neuro: General: patient oriented x3 Course Reevaluation(s) Reevaluation #1: Patient had generalized tonic-clonic seizure witnessed by us he was given total 2 mg of Ativan 1500 IV Keppra Time: 13:44 Reevaluation #2: spoke with sister Time: 14:00 Reevaluation #3: He is awake and alert now his vital signs stable will need admission to at least telemetry level of care Time: 14:42 Medications Administered Discontinued Medications Generic Name Dose Route Start Last Admin Trade Name Freq PRN Reason Stop Dose Admin Sodium Chloride 1,000 mls @ 999 mls/hr 12/10/23 13:30 12/10/23 13:30 Ns IVCONT 12/10/23 14:30 999 mls/hr .Q1H1M YAHIR Administration Levetiracetam 1,500 mg in 100 mls @ 400 mls/hr 12/10/23 13:30 12/10/23 14:26 Keppra IV 12/10/23 13:44 Infused ONCE ONE Infusion Lorazepam 1 mg 12/10/23 13:28 12/10/23 13:31 Lorazepam 2 Mg/Ml Vial IVPUSH 12/10/23 13:29 1 mg ONCE ONE Administration Lorazepam 1 mg 12/10/23 13:47 12/10/23 13:49 Lorazepam 2 Mg/Ml Vial IVPUSH 12/10/23 13:48 1 mg ONCE ONE Administration Medical Decision Making Medical Decision Making MDM Narrative: Patient presented with seizure will check Keppra level labs administer lorazepam Differential Diagnosis Differential Diagnoses: The differential diagnosis associated with the presentation includes Seizures /pseudoseizures/poor compliance with the meds Admission/Observation Consideration of admission/observation: Escalation of care including admission/observation considered Lab Data 12/10/23 13:43 12/10/23 13:43 Labs: Lab Results 12/10/23 12/10/23 Range/Units 13:41 13:43 WBC 25.5 H (4.8-10.8) X10*3/uL RBC 4.71 (4.60-5.80) X10*6/uL Hgb 15.7 (14.0-18.0) g/dl Hct 45.7 (42.0-52.0) % MCV 97.0 (80.0-98.0) fL MCH 33.3 H (27.0-33.0) pg MCHC 34.4 (31.0-36.0) g/dl RDW 13.0 (11.0-16.0) % Plt Count 279 (160-400) X10*3/uL MPV 9.3 L (9.4-12.4) fL Immature Gran % (Auto) 0.9 H (0.0-0.4) % Neut % (Auto) 83.3 H (45-73) % Lymph % (Auto) 10.1 L (20-40) % [place] % (Auto) 5.5 (2-11) % Eos % (Auto) 0.0 (0-4) % Baso % (Auto) 0.2 (0-2) % Lymph # (Auto) 2.6 (1.2-4.9) X10*3/uL [place] # (Auto) 1.4 H (0.1-1.2) X10*3/uL Eos # (Auto) 0.0 (0.0-0.4) X10*3/uL Baso # (Auto) 0.1 (0.0-0.2) X10*3/uL Abs Immat Gran (auto) 0.23 H (0.00-0.03) X10*3/uL Absolute Neuts (auto) 21.2 H (2.0-8.3) x10*3/uL Absolute Nucleated RBC 0.000 (0.0-0.012) X10*3/uL Nucleated RBC % (auto) 0.0 (0.0-0.2) /100WBC Smear Tech's Comments VERIFIED Sodium 149 H (135-145) mmol/L Potassium 4.1 (3.3-5.1) mmol/L Chloride 114 H (96-108) mmol/L Carbon Dioxide 14 L (22-29) mmol/L Anion Gap 25 H (12-20) BUN 11 (9-16) mg/dL Creatinine 1.14 (0.5-1.4) mg/dL Estim Creat Clear Calc 114.5 Estimated GFR > 60 POC Glucose 165 H (60-115) mg/dL Random Glucose 168 H (60-115) mg/dL Calcium 9.8 (8.4-10.2) mg/dL Magnesium 2.5 (1.6-2.6) mg/dL Total Bilirubin 0.3 (0.0-1.0) mg/dL AST 35 (5-37) U/L ALT 44 H (0-40) U/L Alkaline Phosphatase 59 (39-117) U/L Total Creatine Kinase 247 H (38-174) U/L Total Protein 7.8 (6.5-8.0) g/dL Albumin 4.5 (3.5-5.0) g/dL Ethyl Alcohol < 10 mg/dL Critical Care Time Critical Care Time Total Critical Care Time: 60 Attestation: IV lorazepam/IV Keppra Discharge Plan Discharge Clinical Impression: Seizure, Metabolic acidosis Patient Disposition: Admitted As Inpatient Print Language: Mongolian
[2023-12-10] MEDS: levETIRAcetam in NaCl (iso-os) 1,500 MG/100 ML PIGGYBACK 400 MG IV (13:44)
--- NOTE | 2023-12-10 13:45 | PC.NURSE ---
at 1338 patient started to begin having seizure, patient noted to have tonic clonic movement, airway patent and intact, patient mmouth suctioned and placed on non rebreather mask. sat 99%. second IV access placed on left AC 18#. patient medicated per JUN, also given 1mg IV ativan verbal order by DR Reaves. patient now post ictal. respirations even and unlabored, sinus tach on the monitor 111. o2 sat 96% on room air
[2023-12-10 13:48] LABS: Glucose, Whole Blood 165 mg/dL (60-115)
[2023-12-10 13:50] LABS: Basophils Absolute Auto 0.1 X10*3/uL (0.0-0.2); Basophils Percent Auto 0.2 % (0-2); Hematocrit 45.7 % (42.0-52.0); Hemoglobin 15.7 g/dl (14.0-18.0); Imm Gran Abs Auto 0.23 X10*3/uL (0.00-0.03); Imm Gran Pct Auto 0.9 % (0.0-0.4); Lymphocytes Absolute Auto 2.6 X10*3/uL (1.2-4.9); Lymphocytes Percent Auto 10.1 % (20-40); MANUAL DIFF FLAG SCAN; Mean Corpuscular HGB Conc 34.4 g/dl (31.0-36.0); Mean Corpuscular Hemoglobin 33.3 pg (27.0-33.0); Mean Platelet Volume 9.3 fL (9.4-12.4); Monocytes Absolute Auto 1.4 X10*3/uL (0.1-1.2); Monocytes Percent Auto 5.5 % (2-11); Neutrophils Absolute Auto 21.2 x10*3/uL (2.0-8.3); Neutrophils Percent Auto 83.3 % (45-73); Platelet Count 279 X10*3/uL (160-400); Red Blood Count 4.71 X10*6/uL (4.60-5.80); SCAN SMEAR FLAG 1; White Blood Count 25.5 X10*3/uL (4.8-10.8)
[2023-12-10 13:54] VITALS: BP 160/88; PULSE 111; RESP 25; O2SAT 95
[2023-12-10 14:06] VITALS: BP 152/94; PULSE 106; RESP 27; O2SAT 94
[2023-12-10 14:07] LABS: SLIDE REVIEW VERIFIED
[2023-12-10 14:17] LABS: Alanine Aminotransferase 44 U/L (0-40); Albumin Level 4.5 g/dL (3.5-5.0); Alkaline Phosphatase 59 U/L (39-117); Anion Gap 25 (12-20); Aspartate Amino Transferase 35 U/L (5-37); Bilirubin Total 0.3 mg/dL (0.0-1.0); Blood Urea Nitrogen 11 mg/dL (9-16); Calcium 9.8 mg/dL (8.4-10.2); Carbon Dioxide 14 mmol/L (22-29); Chloride 114 mmol/L (96-108); Creatinine Clr Calc Pharmacy 114.5; Estimated Glomerular Filt Rate > 60; Glucose Random 168 mg/dL (60-115); Magnesium 2.5 mg/dL (1.6-2.6); Potassium 4.1 mmol/L (3.3-5.1); Sodium 149 mmol/L (135-145); Total Protein 7.8 g/dL (6.5-8.0)
[2023-12-10 14:33] LABS: Ethanol < 10 mg/dL
--- NOTE | 2023-12-10 15:07 | PM.IMHP ---
History of Present Illness Date of Service: 12/10/23 Attending physician on admission: Delvis [facility] Chief Complaint: seizure 27 year old male with history of unspecified seizure disorder and alcohol use disorder presented to the ED via EMS after friend witnessed seizure at home. The patient has seizure disorder and reports only taking his keppra once daily. He also reports heavy binge drinking in leisure . Last alcoholic beverage was 2 days ago when he drank 1/2 gallon of hard liquor. He had witnessed seizure in the ED and was given 2g ativan and loaded with 1500mg keppra. On exam, pt somnolant but arousable, difficult to stay awake but orientedx4. Vitals on admission significant for tachycardia to 106, tachypnea and hypertension 152/94. He has a leukocytosis of 25.5. Renal function wnl. Na 149, Cl 114, CO2 14, AG 25, lactic acid 6.2, repeat pending. Ethyl alcohol level undeteactable. Keppra level pending. Review of Systems Review of Systems: Yes all other systems are reviewed and are negative COUNTS INCLUDE 234 BEDS AT THE [facility] Medical History (Updated 12/10/23 @ 15:51 by ANAI Iglesias) Alcohol use disorder Seizure disorder Social History Alcohol intake: current Alcohol intake frequency: 3 or more drinks per day Alcohol type: beer, wine and hard liquor Patient Tobacco Use Status: Current someday Tobacco user Substance Use Type: Marijuana Advance Directives: No Advance Directives Information Provided: Yes Meds Allergies Allergy/AdvReac Type Severity Reaction Status Date / Time No Known Allergies Allergy Verified 12/10/23 13:29 Active Medications: Current Medications Acetaminophen (Acetaminophen 325 Mg Tablet) 650 mg PO Q6H PRN PRN Reason: Pain, Mild (Pain Scale 1-3), fever or headache Sodium Chloride (0.9 % Sodium Chloride Flush 3 Ml Syringe) 3 ml IVFLUSH QSHIFT [facility] Physical Exam Vital Signs and Narrative: Vital Signs: Last Vital Signs Temp 98.2 F 12/10/23 13:27 Pulse 106 H 12/10/23 14:06 Resp 27 H 12/10/23 14:06 BP 152/94 H 12/10/23 14:06 Pulse Ox 94 12/10/23 14:06 O2 Del Method Room Air 12/10/23 14:06 BMI result Body Mass Index 23.1 Constitutional - somnolent but arousable, No apparent distress Eyes - PERRLA, EOMI Cardiovascular - S1S2, RRR, No edema Respiratory - Normal lung expansion, Normal respiratory effort, No respiratory distress, CTA bilaterally Gastrointestinal - NT / ND; +BS; No rebound or guarding Extremities - no calf tenderness bilaterally, no swelling Skin - Warm/Dry Neurological - somnolent but arousable, oriented x4, CN II-XII in tact Results Labs 12/10/23 13:43 12/10/23 13:43 Labs: Laboratory Results - last 24 hr 12/10/23 12/10/23 13:41 13:43 MCV 97.0 MCH 33.3 H MCHC 34.4 RDW 13.0 Plt Count 279 MPV 9.3 L Immature Gran % (Auto) 0.9 H Neut % (Auto) 83.3 H Lymph % (Auto) 10.1 L [place] % (Auto) 5.5 Eos % (Auto) 0.0 Baso % (Auto) 0.2 Lymph # (Auto) 2.6 [place] # (Auto) 1.4 H Eos # (Auto) 0.0 Baso # (Auto) 0.1 Abs Immat Gran (auto) 0.23 H Absolute Neuts (auto) 21.2 H Absolute Nucleated RBC 0.000 Nucleated RBC % (auto) 0.0 Smear Tech's Comments VERIFIED Anion Gap 25 H Estim Creat Clear Calc 114.5 Estimated GFR > 60 POC Glucose 165 H Random Glucose 168 H Calcium 9.8 Magnesium 2.5 Total Bilirubin 0.3 AST 35 ALT 44 H Alkaline Phosphatase 59 Total Creatine Kinase 247 H Total Protein 7.8 Albumin 4.5 Ethyl Alcohol < 10 Assessment and Plan (1) Acidosis, lactic: Status: Acute (2) Hypernatremia: Status: Acute (3) Metabolic acidosis: Status: Acute (4) Seizure: Status: Acute Plan 27 year old male with history of unspecified seizure disorder and alcohol use disorder admitted for further management of breakthrough seizure and alcohol withdrawal #Breakthrough seizure -possibly in setting of medication noncompliance (only taking keppra once daily) vs etoh withdrawal -Resume keppra 500mg bid -seizure precautions -outpt eeg/neuro eval unless patient has addl seizure activity #Alcohol use disorder -last drink 2 days ago -monitor on ciwa -initiate phenobarbital per protocol given seizure activity -iv thiamine and folic acid -addiction med consult #Anion gap metabolic acidosis due to lactic acidosis in setting of seizure activity -Lactic acid 6.2 (due to seizure not severe sepsis), repeat pending -VBG ph 7.36, pCO2 27, HCO3 16 -continue ivf -follow #Acute hypernatremia -IV D5w -follow lytes full code lovenox pt requires inpt stay at least 2 midnights for management of acute breakthrough seizure with alcohol withdrawal on phenobarbital and requiring seizure precautions and close monitoring Quality Stroke Does the patient have a stroke diagnosis?: No VTE Prior VTE?: No VTE Risk Level:: Medical - moderate - high VTE Device Contraindication: Treatment Not Indicated VTE Drug Contraindication: N/A - Med Ordered
[2023-12-10 15:13] LABS: Lactic Acid 6.2 mmol/L (0.5-2.0)
[2023-12-10] MEDS: Thiamine HCL 100 MG in 0.9 % Sodium Chloride 100 ML 202 MG IV (15:43)
[2023-12-10] MEDS: PHENobarbitaL sodium 130 MG/ML IM ONCE 400 MG IM (15:48)
[2023-12-10 15:49] VITALS: BP 153/94; PULSE 96; RESP 26; TEMP 37.7; O2SAT 94
[2023-12-10 15:53] LABS: VBG Base Excess -7.4 mmol/L; VBG HCO3 16 mmol/L (22-26); VBG pCO2 27 mmHg; VBG pH 7.36 (7.32-7.43); VBG pO2 86 mmHg
[2023-12-10 16:07] LABS: Venous Blood Gas Refer to POC result
[2023-12-10 16:46] LABS: Reflex Lactate? Lactic Acid Added
--- NOTE | 2023-12-10 16:48 | PC.NURSE ---
patient opens eyes to name, patient is more alert and oriented since seizure. asked patient about drinking hx and how much alcohol he drinks, per patient sister patient had 3 glasses of wine yesterday after a . patient would not talk about alcohol use. per patients sister patient has increased stress due to a in the family an lack of sleep.
[2023-12-10] MEDS: Dextrose 5 % 1,000 ML 100 ML IVCONT (17:15)
[2023-12-10 17:24] LABS: Amphetamine Screen Urine Not Detected (Not Detect); Barbiturates, Urine Not Detected (Not Detect); Benzodiazepines Screen Urine Not Detected (Not Detect); Buprenorphine Scr Not Detected (Not Detect); Cannabinoid Screen Urine POSITIVE (Not Detect); Cocaine Screen Urine Not Detected (Not Detect); Fentanyl, urine Not Detected (Not Detect); Methadone Screen, Urine Not Detected (Not Detect); Opiate Screen Urine Not Detected (Not Detect); Oxycodone Screen Urine Not Detected (Not Detect); Phencyclidine Screen Urine Not Detected (Not Detect)
[2023-12-10 17:31] LABS: ~Lactic Acid-LAB USE ONLY 2.6 mmol/L (0.5-2.0)
--- NOTE | 2023-12-10 17:47 | PHA.MEDREC ---
Addendum entered by Anabell Montoya RPh 12/10/23 17:52: Med rec was reviewed by [facility]. Original Note: Pharmacy Consult ? Medication Reconciliation Pharmacy has completed the medication reconciliation. Spoke with patients sister at bedside. Patient was able to verbalize he takes keppra 3 tablets once daily which matches claim history. Sister was able to confirm with another family member over the phone that it is 3 tablets once daily as well. She reports that he took the keppra after his seizure occured as he normally takes it later in the day. They were not able to remember the dose but 750 mg is the only one in claim history.
[2023-12-10] MEDS: Folic Acid 1 MG in 0.9 % Sodium Chloride 50 ML 100.4 MG IV (17:52)
[2023-12-10 18:18] VITALS: BP 162/89; PULSE 99; RESP 16; TEMP 36.6; O2SAT 94; BMI 26.6
[2023-12-10 18:26] LABS: Cancel Lactic Acid Canceled
[2023-12-10] MEDS: PHENobarbitaL sodium 130 MG/ML VIAL IM Q3Hx2 300 MG IM ×2 (18:39→22:04)
[2023-12-10 20:00] VITALS: BP 152/96; PULSE 110; RESP 20; TEMP 37.4; O2SAT 94
[2023-12-11] VITALS: BP 135/94; PULSE 79; RESP 20; TEMP 36.8; O2SAT 100
[2023-12-11 03:17] VITALS: BP 141/83; PULSE 80; RESP 16; TEMP 36.8; O2SAT 100
[2023-12-11] MEDS: Dextrose 5 % 1,000 ML 100 ML IVCONT ×2 (03:17→12:35)
[2023-12-11 06:51] LABS: MANUAL DIFF FLAG NO
[2023-12-11 07:18] LABS: Basophils Absolute Auto 0.1 X10*3/uL (0.0-0.2); Basophils Percent Auto 0.4 % (0-2); Eosinophils Absolute Auto 0.2 X10*3/uL (0.0-0.4); Eosinophils Percent Auto 1.1 % (0-4); Hematocrit 40.3 % (42.0-52.0); Hemoglobin 14.1 g/dl (14.0-18.0); Imm Gran Abs Auto 0.09 X10*3/uL (0.00-0.03); Imm Gran Pct Auto 0.7 % (0.0-0.4); Lymphocytes Absolute Auto 2.4 X10*3/uL (1.2-4.9); Mean Corpuscular Hemoglobin 32.9 pg (27.0-33.0); Mean Corpuscular Volume 93.9 fL (80.0-98.0); Mean Platelet Volume 9.4 fL (9.4-12.4); Monocytes Percent Auto 7.8 % (2-11); Neutrophils Absolute Auto 9.4 x10*3/uL (2.0-8.3); Platelet Count 242 X10*3/uL (160-400); Red Blood Count 4.29 X10*6/uL (4.60-5.80); Red Cell Distribution Width 12.8 % (11.0-16.0); White Blood Count 13.1 X10*3/uL (4.8-10.8)
[2023-12-11 07:20] LABS: Anion Gap 12 (12-20); Blood Urea Nitrogen 7 mg/dL (9-16); Calcium 9.2 mg/dL (8.4-10.2); Carbon Dioxide 23 mmol/L (22-29); Chloride 105 mmol/L (96-108); Creatinine Clr Calc Pharmacy 149.3; Estimated Glomerular Filt Rate > 60; Glucose Random 103 mg/dL (60-115); Potassium 3.3 mmol/L (3.3-5.1); Sodium 137 mmol/L (135-145)
--- NOTE | 2023-12-11 07:37 | P.PNIM_ITS ---
Subjective Subjective Date of Service: 12/11/23 Interval History: Seen in follow up for seizure, etoh use disorder Interval history: reports nausea and anxiety. On phenobarb. No further seizure activity. Not very forthcoming about alcohol use. Yesterday reported consuming half gallon 2 days ago. Now states may have up to 3 spiked seltzers in a day. Vitals stable. Review of Systems Review of Systems: Yes all other systems are reviewed and are negative Physical Exam 2 Vital Signs: Vital Signs: Last Vital Signs Temp 98.3 F 12/11/23 03:17 Pulse 80 12/11/23 03:17 Resp 16 12/11/23 03:17 BP 141/83 H 12/11/23 03:17 Pulse Ox 100 12/11/23 03:17 O2 Del Method Room Air 12/11/23 03:17 BMI result Body Mass Index 26.6 Constitutional - Awake and Alert, No apparent distress Eyes - PERRLA, EOMI Cardiovascular - S1S2, RRR, No edema Respiratory - Normal lung expansion, Normal respiratory effort, No respiratory distress, CTA bilaterally Gastrointestinal - NT / ND; +BS; No rebound or guarding Extremities - no calf tenderness bilaterally, no swelling Skin - Warm/Dry Neurological - Alert & oriented x3, CN II-XII in tact Objective Data Active Medications Acetaminophen (Acetaminophen 325 Mg Tablet) 650 mg PO Q6H PRN PRN Reason: Pain, Mild (Pain Scale 1-3), fever or headache Calcium Carbonate (Calcium Carbonate 750 Mg Tab.Chew) 750 mg PO Q4H PRN PRN Reason: Heartburn Enoxaparin Sodium (Enoxaparin Sodium 40 Mg/0.4 Ml Syringe) 40 mg SUBCUT Q24H [facility] Last Admin: 12/10/23 16:38 Dose: Not Given Documented By: STUART Non-Admin Reason: Patient Refused Thiamine HCl 100 mg/ Sodium (Chloride) 101 mls @ 202 mls/hr IV DAILY [facility] Last Infusion: 12/10/23 16:46 Dose: Infused Documented By: STUART Folic Acid 1 mg/ Sodium (Chloride) 50.2 mls @ 100.4 mls/hr IV DAILY [facility] Last Infusion: 12/10/23 19:30 Dose: Infused Documented By: RADHA Dextrose (D5w) 1,000 mls @ 100 mls/hr IVCONT .Q10H [facility] Last Admin: 12/11/23 03:17 Dose: 100 mls/hr Documented By: LEO Magnesium Hydroxide (Milk Of Magnesia 30 Ml Oral.Susp) 30 ml PO DAILY PRN PRN Reason: Constipation Melatonin (Melatonin 3 Mg Tablet) 6 mg PO BEDTIME PRN PRN Reason: Insomnia Pharmacy Consult (Consult Rx Etoh Phenob Im/Po) 1 each MISCELLANE ONCE PRN; Protocol PRN Reason: Consult order Phenobarbital (Phenobarbital 30 Mg Tablet) 60 mg PO BID [facility]; Protocol Stop: 12/12/23 21:01 Phenobarbital (Phenobarbital 30 Mg Tablet) 30 mg PO BID [facility]; Protocol Stop: 12/14/23 21:01 Phenobarbital (Phenobarbital 30 Mg Tablet) 30 mg PO DAILY [facility]; Protocol Stop: 12/16/23 09:01 Sodium Chloride (0.9 % Sodium Chloride Flush 3 Ml Syringe) 3 ml IVFLUSH QSHIFT [facility] Last Admin: 12/10/23 23:20 Dose: Not Given Documented By: LEO Non-Admin Reason: IV Running Labs 12/11/23 06:27 12/11/23 06:27 Labs: Laboratory Results - last 24 hr 12/10/23 12/10/23 12/10/23 13:41 13:43 14:43 MCV 97.0 MCH 33.3 H MCHC 34.4 RDW 13.0 Plt Count 279 MPV 9.3 L Immature Gran % (Auto) 0.9 H Neut % (Auto) 83.3 H Lymph % (Auto) 10.1 L [place] % (Auto) 5.5 Eos % (Auto) 0.0 Baso % (Auto) 0.2 Lymph # (Auto) 2.6 [place] # (Auto) 1.4 H Eos # (Auto) 0.0 Baso # (Auto) 0.1 Abs Immat Gran (auto) 0.23 H Absolute Neuts (auto) 21.2 H Absolute Nucleated RBC 0.000 Nucleated RBC % (auto) 0.0 Smear Tech's Comments VERIFIED Hold Purple Top VBG pH VBG pCO2 VBG pO2 VBG HCO3 VBG O2 Saturation VBG Base Excess Anion Gap 25 H Estim Creat Clear Calc 114.5 Estimated GFR > 60 POC Glucose 165 H Random Glucose 168 H Lactic Acid 6.2 H* Lactic Acid F/U @ 2Hr Calcium 9.8 Magnesium 2.5 Total Bilirubin 0.3 AST 35 ALT 44 H Alkaline Phosphatase 59 Total Creatine Kinase 247 H Total Protein 7.8 Albumin 4.5 Urine Opiates Screen Ur Buprenorphine Scrn Ur Oxycodone Screen Urine Methadone Screen Urine Fentanyl Screen Ur Barbiturates Screen Ur Phencyclidine Scrn Ur Amphetamines Screen U Benzodiazepines Scrn Urine Cocaine Screen U Marijuana (THC) Screen Ethyl Alcohol < 10 12/10/23 12/10/23 12/10/23 15:36 15:49 16:59 MCV MCH MCHC RDW Plt Count MPV Immature Gran % (Auto) Neut % (Auto) Lymph % (Auto) [place] % (Auto) Eos % (Auto) Baso % (Auto) Lymph # (Auto) [place] # (Auto) Eos # (Auto) Baso # (Auto) Abs Immat Gran (auto) Absolute Neuts (auto) Absolute Nucleated RBC Nucleated RBC % (auto) Smear Tech's Comments Hold Purple Top SEE NOTE VBG pH 7.36 VBG pCO2 27 VBG pO2 86 VBG HCO3 16 L VBG O2 Saturation 98.0 VBG Base Excess -7.4 Anion Gap Estim Creat Clear Calc Estimated GFR POC Glucose Random Glucose Lactic Acid Lactic Acid F/U @ 2Hr Calcium Magnesium Total Bilirubin AST ALT Alkaline Phosphatase Total Creatine Kinase Total Protein Albumin Urine Opiates Screen Not Detected Ur Buprenorphine Scrn Not Detected Ur Oxycodone Screen Not Detected Urine Methadone Screen Not Detected Urine Fentanyl Screen Not Detected Ur Barbiturates Screen Not Detected Ur Phencyclidine Scrn Not Detected Ur Amphetamines Screen Not Detected U Benzodiazepines Scrn Not Detected Urine Cocaine Screen Not Detected U Marijuana (THC) Screen POSITIVE H Ethyl Alcohol 12/10/23 12/11/23 17:06 06:27 MCV 93.9 MCH 32.9 MCHC 35.0 RDW 12.8 Plt Count 242 MPV 9.4 Immature Gran % (Auto) 0.7 H Neut % (Auto) 72.0 Lymph % (Auto) 18.0 L [place] % (Auto) 7.8 Eos % (Auto) 1.1 Baso % (Auto) 0.4 Lymph # (Auto) 2.4 [place] # (Auto) 1.0 Eos # (Auto) 0.2 Baso # (Auto) 0.1 Abs Immat Gran (auto) 0.09 H Absolute Neuts (auto) 9.4 H Absolute Nucleated RBC 0.000 Nucleated RBC % (auto) 0.0 Smear Tech's Comments Hold Purple Top VBG pH VBG pCO2 VBG pO2 VBG HCO3 VBG O2 Saturation VBG Base Excess Anion Gap 12 Estim Creat Clear Calc 149.3 Estimated GFR > 60 POC Glucose Random Glucose 103 Lactic Acid Lactic Acid F/U @ 2Hr 2.6 H* Calcium 9.2 D Magnesium Total Bilirubin AST ALT Alkaline Phosphatase Total Creatine Kinase Total Protein Albumin Urine Opiates Screen Ur Buprenorphine Scrn Ur Oxycodone Screen Urine Methadone Screen Urine Fentanyl Screen Ur Barbiturates Screen Ur Phencyclidine Scrn Ur Amphetamines Screen U Benzodiazepines Scrn Urine Cocaine Screen U Marijuana (THC) Screen Ethyl Alcohol Assessment and Plan (1) Acidosis, lactic: Status: Acute (2) Hypernatremia: Status: Acute (3) Metabolic acidosis: Status: Acute (4) Seizure: Status: Acute Plan 27 year old male with history of unspecified seizure disorder and alcohol use disorder admitted for further management of breakthrough seizure and alcohol withdrawal #Breakthrough seizure -Initially thought to be med noncompliant- however med rec confirmed 750mg x3 tabs keppra XR so is taking correctly. Likely in setting of etoh w/d -continue keppra -seizure precautions -outpt neuro- follows with Dr. Millan #Alcohol use disorder -monitor on ciwa -continue phenobarbital per protocol given seizure activity -iv thiamine and folic acid -addiction med consult #Anion gap metabolic acidosis due to lactic acidosis in setting of seizure activity- resolved -Lactic acidosis due to seizure activity, not severe sepsis #SIRS criteria -due to seizure (tachy). Leukocytosis reactive in setting of seizure. No infection, no sepsis #Acute hypernatremia -resolved. dc ivf -follow lytes full code lovenox pt requires ongoing inpt stay acute breakthrough seizure with alcohol withdrawal on phenobarbital and requiring seizure precautions and close monitoring awaiting expert consultation from addiction team Quality Stroke Does the patient have a stroke diagnosis?: No VTE Prior VTE?: No VTE Risk Level:: Medical - moderate - high VTE Device Contraindication: Treatment Not Indicated VTE Drug Contraindication: N/A - Med Ordered
[2023-12-11 07:58] VITALS: BP 137/84; PULSE 68; RESP 20; TEMP 36.2; O2SAT 97
[2023-12-11] MEDS: PHENobarbitaL 30 MG TABLET 60 MG PO ×2 (09:01→20:49)
[2023-12-11] MEDS: Folic Acid 1 MG in 0.9 % Sodium Chloride 50 ML 100.4 MG IV (09:02)
--- NOTE | 2023-12-11 09:13 | MHC.CM.PN ---
CM met with Patient at bedside. Patient lives in an apartment with his Mother and he is functionally independent. Home/self care vs Recovery Team Intervention R/T ETOH is the tentative plan and CM has initiated and will follow for dc planning. Patient has no PCP(resource guide offered) and his Mother will transport to home.
[2023-12-11] MEDS: Thiamine HCL 100 MG in 0.9 % Sodium Chloride 100 ML 202 MG IV (09:35)
[2023-12-11 11:31] VITALS: BP 128/74; PULSE 63; RESP 20; TEMP 36.1; O2SAT 97
--- NOTE | 2023-12-11 13:26 | HO.ADDICT_ITS ---
History of Present Illness Date of Service: 12/11/23 Chief Complaint: seizure, ?etoh withdrawal Reason for Consult: Patient is a 27 year old male medically admitted following a seizure. Pt had positive screen for unhealthy alcohol use on admission, subsequently met with t/w to discuss alcohol use and recovery supports/options. This manual writer met with patient in room 474 to?discuss current alcohol use and concerns related to increased risk of alcohol related?problems.? Somewhat difficult to elicit information related to alcohol intake as patient was very vague in answering. He does not feel that his drinking is an issue and denies any issues related to work, family, relationships or health. 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 He is unable to tell me how often he drinks in a month, but does state that over a night he can have on avg of 6 tequilla drinks Discussed?how alcohol use has impacted health, including negative impact on underlying seizure disorder. Patient states that he does not feel there is a connection, but open to discussing this and how alcohol actually can increase risk of seizures, including withdrawal seizures. Denies any history of withdrawal sx and denies any history of treatment Discussed risk reduction strategies including drinking below the recommended limit, and taking all medications as prescribed Patient declined resources and does not identify drinking as an issue for him. Review of Systems Constitutional: Reports as per HPI Diagnostics Vital Signs (24Hr): Vital Signs - 24 hr 12/10/23 13:27 12/10/23 13:54 12/10/23 14:06 Temperature 98.2 F Pulse Rate 94 111 H 106 H Respiratory Rate 18 25 H 27 H Blood Pressure 158/104 H 160/88 H 152/94 H Pulse Oximetry 97 95 94 Oxygen Delivery Method Room Air Room Air Room Air 12/10/23 15:49 12/10/23 18:18 12/10/23 20:00 Temperature 99.8 F 97.8 F 99.4 F Pulse Rate 96 99 110 H Respiratory Rate 26 H 16 20 Blood Pressure 153/94 H 162/89 H 152/96 H Pulse Oximetry 94 94 94 Oxygen Delivery Method Room Air Room Air Room Air 12/11/23 00:00 12/11/23 03:17 12/11/23 07:58 Temperature 98.2 F 98.3 F 97.2 F Pulse Rate 79 80 68 Respiratory Rate 20 16 20 Blood Pressure 135/94 H 141/83 H 137/84 Pulse Oximetry 100 100 97 Oxygen Delivery Method Room Air Room Air Room Air 12/11/23 11:31 Temperature 97.0 F Pulse Rate 63 Respiratory Rate 20 Blood Pressure 128/74 Pulse Oximetry 97 Oxygen Delivery Method Room Air BMI result Body Mass Index 26.6 Labs 12/11/23 06:27 12/11/23 06:27 Labs: Laboratory Results - last 48 hr 12/10/23 12/10/23 12/10/23 13:41 13:43 14:43 WBC 25.5 H RBC 4.71 Hgb 15.7 Hct 45.7 MCV 97.0 MCH 33.3 H MCHC 34.4 RDW 13.0 Plt Count 279 MPV 9.3 L Immature Gran % (Auto) 0.9 H Neut % (Auto) 83.3 H Lymph % (Auto) 10.1 L [place] % (Auto) 5.5 Eos % (Auto) 0.0 Baso % (Auto) 0.2 Lymph # (Auto) 2.6 [place] # (Auto) 1.4 H Eos # (Auto) 0.0 Baso # (Auto) 0.1 Abs Immat Gran (auto) 0.23 H Absolute Neuts (auto) 21.2 H Absolute Nucleated RBC 0.000 Nucleated RBC % (auto) 0.0 Smear Tech's Comments VERIFIED Hold Purple Top VBG pH VBG pCO2 VBG pO2 VBG HCO3 VBG O2 Saturation VBG Base Excess Sodium 149 H Potassium 4.1 Chloride 114 H Carbon Dioxide 14 L Anion Gap 25 H BUN 11 Creatinine 1.14 Estim Creat Clear Calc 114.5 Estimated GFR > 60 POC Glucose 165 H Random Glucose 168 H Lactic Acid 6.2 H* Lactic Acid F/U @ 2Hr Calcium 9.8 Magnesium 2.5 Total Bilirubin 0.3 AST 35 ALT 44 H Alkaline Phosphatase 59 Total Creatine Kinase 247 H Total Protein 7.8 Albumin 4.5 Urine Opiates Screen Ur Buprenorphine Scrn Ur Oxycodone Screen Urine Methadone Screen Urine Fentanyl Screen Ur Barbiturates Screen Ur Phencyclidine Scrn Ur Amphetamines Screen U Benzodiazepines Scrn Urine Cocaine Screen U Marijuana (THC) Screen Ethyl Alcohol < 10 12/10/23 12/10/23 12/10/23 15:36 15:49 16:59 WBC RBC Hgb Hct MCV MCH MCHC RDW Plt Count MPV Immature Gran % (Auto) Neut % (Auto) Lymph % (Auto) [place] % (Auto) Eos % (Auto) Baso % (Auto) Lymph # (Auto) [place] # (Auto) Eos # (Auto) Baso # (Auto) Abs Immat Gran (auto) Absolute Neuts (auto) Absolute Nucleated RBC Nucleated RBC % (auto) Smear Tech's Comments Hold Purple Top SEE NOTE VBG pH 7.36 VBG pCO2 27 VBG pO2 86 VBG HCO3 16 L VBG O2 Saturation 98.0 VBG Base Excess -7.4 Sodium Potassium Chloride Carbon Dioxide Anion Gap BUN Creatinine Estim Creat Clear Calc Estimated GFR POC Glucose Random Glucose Lactic Acid Lactic Acid F/U @ 2Hr Calcium Magnesium Total Bilirubin AST ALT Alkaline Phosphatase Total Creatine Kinase Total Protein Albumin Urine Opiates Screen Not Detected Ur Buprenorphine Scrn Not Detected Ur Oxycodone Screen Not Detected Urine Methadone Screen Not Detected Urine Fentanyl Screen Not Detected Ur Barbiturates Screen Not Detected Ur Phencyclidine Scrn Not Detected Ur Amphetamines Screen Not Detected U Benzodiazepines Scrn Not Detected Urine Cocaine Screen Not Detected U Marijuana (THC) Screen POSITIVE H Ethyl Alcohol 12/10/23 12/11/23 17:06 06:27 WBC 13.1 H RBC 4.29 L Hgb 14.1 Hct 40.3 L MCV 93.9 MCH 32.9 MCHC 35.0 RDW 12.8 Plt Count 242 MPV 9.4 Immature Gran % (Auto) 0.7 H Neut % (Auto) 72.0 Lymph % (Auto) 18.0 L [place] % (Auto) 7.8 Eos % (Auto) 1.1 Baso % (Auto) 0.4 Lymph # (Auto) 2.4 [place] # (Auto) 1.0 Eos # (Auto) 0.2 Baso # (Auto) 0.1 Abs Immat Gran (auto) 0.09 H Absolute Neuts (auto) 9.4 H Absolute Nucleated RBC 0.000 Nucleated RBC % (auto) 0.0 Smear Tech's Comments Hold Purple Top VBG pH VBG pCO2 VBG pO2 VBG HCO3 VBG O2 Saturation VBG Base Excess Sodium 137 Potassium 3.3 Chloride 105 Carbon Dioxide 23 Anion Gap 12 BUN 7 L Creatinine 0.88 Estim Creat Clear Calc 149.3 Estimated GFR > 60 POC Glucose Random Glucose 103 Lactic Acid Lactic Acid F/U @ 2Hr 2.6 H* Calcium 9.2 D Magnesium Total Bilirubin AST ALT Alkaline Phosphatase Total Creatine Kinase Total Protein Albumin Urine Opiates Screen Ur Buprenorphine Scrn Ur Oxycodone Screen Urine Methadone Screen Urine Fentanyl Screen Ur Barbiturates Screen Ur Phencyclidine Scrn Ur Amphetamines Screen U Benzodiazepines Scrn Urine Cocaine Screen U Marijuana (THC) Screen Ethyl Alcohol Mental Status Exam Mental Status Exam Patient Appearance: Appropriate Level of Consciousness: Awake, Appropriate and Alert Patient Behavior: Cooperative Mood Description: Calm Affect Description: Calm Medications Medications Current Medications Acetaminophen (Acetaminophen 325 Mg Tablet) 650 mg PO Q6H PRN PRN Reason: Pain, Mild (Pain Scale 1-3), fever or headache Calcium Carbonate (Calcium Carbonate 750 Mg Tab.Chew) 750 mg PO Q4H PRN PRN Reason: Heartburn Enoxaparin Sodium (Enoxaparin Sodium 40 Mg/0.4 Ml Syringe) 40 mg SUBCUT Q24H [facility] Last Admin: 12/10/23 16:38 Dose: Not Given Thiamine HCl 100 mg/ Sodium (Chloride) 101 mls @ 202 mls/hr IV DAILY [facility] Last Infusion: 12/11/23 10:06 Dose: Infused Folic Acid 1 mg/ Sodium (Chloride) 50.2 mls @ 100.4 mls/hr IV DAILY [facility] Last Infusion: 12/11/23 09:44 Dose: Infused Magnesium Hydroxide (Milk Of Magnesia 30 Ml Oral.Susp) 30 ml PO DAILY PRN PRN Reason: Constipation Melatonin (Melatonin 3 Mg Tablet) 6 mg PO BEDTIME PRN PRN Reason: Insomnia Pharmacy Consult (Consult Rx Etoh Phenob Im/Po) 1 each MISCELLANE ONCE PRN; Protocol PRN Reason: Consult order Phenobarbital (Phenobarbital 30 Mg Tablet) 60 mg PO BID [facility]; Protocol Stop: 12/12/23 21:01 Last Admin: 12/11/23 09:01 Dose: 60 mg Phenobarbital (Phenobarbital 30 Mg Tablet) 30 mg PO BID [facility]; Protocol Stop: 12/14/23 21:01 Phenobarbital (Phenobarbital 30 Mg Tablet) 30 mg PO DAILY [facility]; Protocol Stop: 12/16/23 09:01 Sodium Chloride (0.9 % Sodium Chloride Flush 3 Ml Syringe) 3 ml IVFLUSH QSHIFT [facility] Last Admin: 12/11/23 09:01 Dose: Not Given Allergies Allergies Allergy/AdvReac Type Severity Reaction Status Date / Time No Known Allergies Allergy Verified 12/10/23 13:29 Assessment & Plan Assessment & Plan (1) Seizure: Status: Acute Code(s): R56.9 - Unspecified convulsions Assessment and Plan: * risk reduction discussion related to alcohol and increased risk for seizures * no questions at this time--no intervention Total time managing care of this patient today ____ minutes. PMFSH Past Medical History Medical History Alcohol use disorder Seizure disorder Social History Social History Household Members: Other Household Members Other:: mom Housing: House Do you presently have visiting nurse or other home services: No Alcohol intake: current Alcohol intake frequency: 3 or more drinks per day Alcohol type: beer, wine and hard liquor Patient Tobacco Use Status: Never used Tobacco Substance Use Type: Marijuana service: No
[2023-12-11 16:00] VITALS: BP 115/65; PULSE 66; RESP 20; TEMP 36.6; O2SAT 98
[2023-12-11 20:00] VITALS: BP 127/77; PULSE 72; RESP 20; TEMP 36.4; O2SAT 99
[2023-12-11] MEDS: 0.9 % Sodium Chloride Flush 3 ML SYRINGE IVFLUSH (20:50)
[2023-12-12] VITALS: BP 127/80; PULSE 71; RESP 20; TEMP 37.6; O2SAT 96
[2023-12-12 04:00] VITALS: BP 130/78; PULSE 56; RESP 20; TEMP 36.8; O2SAT 100
[2023-12-12 07:10] VITALS: BP 126/60; PULSE 62; RESP 18; TEMP 36.7; O2SAT 99
[2023-12-12] MEDS: Folic Acid 1 MG in 0.9 % Sodium Chloride 50 ML 100.4 MG IV (08:51)
[2023-12-12] MEDS: 0.9 % Sodium Chloride Flush 3 ML SYRINGE IVFLUSH (08:51)
[2023-12-12] MEDS: PHENobarbitaL 30 MG TABLET 60 MG PO (08:51)
[2023-12-12] MEDS: Thiamine HCL 100 MG in 0.9 % Sodium Chloride 100 ML 202 MG IV (09:49)
--- NOTE | 2023-12-12 10:42 | P.DS_ITS ---
DS: Providers Provider Date of Service: 12/12/23 Date of admission: 12/10/23 15:03 Date of discharge: 12/12/23 Primary care physician: Unknown Physician Consults: 12/10/23 15:58 Addiction Medicine Routine Consulting Provider: Addiction Covering Reason for consultation: alcohol use d/o DS: Diagnosis Discharge Diagnosis (1) Seizure: Status: Acute DS: Summary Hospital Course Hospital Course: 27 year old male with history of unspecified seizure disorder and alcohol use disorder presented to the ED via EMS after friend witnessed seizure at home. The patient has seizure disorder and reports only taking his keppra once daily. He also reports heavy binge drinking in leisure . Last alcoholic beverage was 2 days ago when he drank 1/2 gallon of hard liquor. He had witnessed seizure in the ED and was given 2g ativan and loaded with 1500mg keppra. On exam, pt somnolant but arousable, difficult to stay awake but orientedx4. Vitals on admission significant for tachycardia to 106, tachypnea and hypertension 152/94. He has a leukocytosis of 25.5. Renal function wnl. Na 149, Cl 114, CO2 14, AG 25, lactic acid 6.2, repeat pending. Ethyl alcohol level undeteactable. Keppra l evel pending. Hospital Course Admitted to telemetry and followed on CIWA scale. No further seizures since admission. Hyponatremia resolved with volume repletion. Was seen by addiction Medicine and was not interested in services. Over the next 24 hours his CIWA scale remain 0 at this point in time he is asking for discharge; medically acceptable at this time. He will be discharged to resume his Keppra at outpatient dosing and follow up with PCP next available Time Attestation Discharge Coordination Time (in mins): 35 Quality: Safe Use of Opioids Does Pt have an Active Cancer Diagnosis on the Problem List?: No Quality: Stroke Does the patient have a stroke diagnosis?: No Physical Exam Vital Signs: Vital Signs: Last Vital Signs Temp 98.0 F 12/12/23 07:10 Pulse 62 12/12/23 07:10 Resp 18 12/12/23 07:10 BP 126/60 12/12/23 07:10 Pulse Ox 99 12/12/23 07:10 O2 Del Method Room Air 12/12/23 07:10 BMI result Body Mass Index 26.6 Const: Other: Awake alert oriented x3 no acute distress Resp: Other: Clear to auscultation bilaterally no rales rhonchi or wheezes Cardio: Other: No S4; positive S1-S2; no S3 murmurs rubs or gallops GI: Other: Soft nontender nondistended normoactive bowel sounds Neuro: Other: Cranial nerves 2-12 grossly intact as tested. Motor is 5/5 all extremities. Sensation is intact. Cognition appropriate. Gait steady Extrem: Other: No edema bilaterally Discharge Plan Discharge Anticipated Discharge Date/Time: 12/12/23 10:41 Patient Disposition: Home, Self-Care Discharge Diagnosis: Seizure disorder Referrals: Physician,Unknown J [Primary Care Provider] - 1 Week Discharge Medications: Continued levetiracetam 750 mg tablet extended release 24 hr 2,250 mg PO DAILY Discharge Orders: Discharge Order (Routine); Ordered 12/12/23 Ordered By: Gomez Galicia Diet: Advance to usual diet Activity on Discharge: As tolerated Stand Alone Forms: Patient Portal Discharge page Print Language: Hebrew Care Plan Goals: Resume Keppra dosing as taken previous to hospital Health Concerns: You should not drink alcohol with your seizure disorder as it can provoke her seizures Plan of Treatment: Follow up with the PCP next available Assessment: See discharge summary
--- NOTE | 2023-12-12 10:56 | PC.NURSE ---
in the morning pt lost his IV access , insisted that he wnts to go outside to smoke , stated that he wants to leave AMA , . PER MD Galicia it is okay not to insert new IV , pt will be discharge home today
--- NOTE | 2023-12-12 10:59 | MHC.CM.PN ---
Pt is medically cleared for discharge home self-care, pts mother to transport him home.
[2023-12-14 20:08] LABS: Levetiracetam Keppra <2.0 mcg/mL (6.0-46.0)
== END 2023-12-12 10:55 | disposition home or self-care (01) | DRG 101 ==
LOC: HO.ED 14:41 → HO.EDOVER 15:08 → HO.IMC 17:01
PROVIDERS: Admitting Provider Physician Assistant; Emergency Provider Emergency Medicine; Visit Provider Hospitalist
DX: G40.909 Epilepsy, unspecified, not intractable, without status epilepticus (principal); E87.20 Acidosis, unspecified; E87.0 Hyperosmolality and hypernatremia; T42.6X6A Underdosing of other antiepileptic and sedative-hypnotic drugs, initial encounter; F10.90 Alcohol use, unspecified, uncomplicated; Z79.899 Other long term (current) drug therapy
CPT/HCPCS: 36415; 80048; 80053; 80177; 80307; 82550; 82803; 82947; 83605; 83735; 85025; 99285; J1953; J2060; J2560; J3411

== ENCOUNTER → 2023-12-10 15:03 | Outpatient (BNV) | payer OTHER, SELFPAY | PROVIDERS: Admitting Provider Physician Assistant; Emergency Provider Emergency Medicine; Visit Provider Physician Assistant | DX: R56.9 Unspecified convulsions (principal) | CPT/HCPCS: 99223; 99232; 99239 ==

== ENCOUNTER → 2023-12-10 15:03 | Outpatient (BNV) | payer MEDICAID, SELFPAY | PROVIDERS: Admitting Provider Physician Assistant; Emergency Provider Emergency Medicine; Visit Provider Nurse Practitioner Psychiatric/Mental Health | DX: R56.9 Unspecified convulsions (principal) | CPT/HCPCS: 99221 ==